=== PATIENT | male | born 1990 | race American Indian/Alaskan Native ===

== ENCOUNTER 2017-06-22 15:12 | Emergency (ER) | payer SELFPAY ==
[2017-06-22 15:18] VITALS: BP 150/88; PULSE 59; RESP 20; TEMP 97.8; O2SAT 100
--- NOTE | 2017-06-22 15:31 | C.PDOC ---
History Of Present Illness 27 yr old male presents to the ER with complaints of right eye itchiness since yesterday. Patient states he woke up today with crusting and redness. Denies fever, vision changes, URI symtpoms, or headache. Time Seen by Provider: 06/22/17 15:21 Chief Complaint (Nursing): Eye Problem History Per: Patient History/Exam Limitations: no limitations Onset/Duration Of Symptoms: Days (1) Current Symptoms Are (Timing): Still Present Past Medical History Reviewed: Historical Data, Nursing Documentation, Vital Signs Vital Signs: Last Vital Signs Temp 97.8 F 06/22/17 15:16 Pulse 59 L 06/22/17 15:16 Resp 20 06/22/17 15:16 BP 150/88 06/22/17 15:16 Pulse Ox 100 06/22/17 16:11 Family History: States: No Known Family Hx - Social History Hx Alcohol Use: No Hx Substance Use: No - Immunization History Hx Tetanus Toxoid Vaccination: No Hx Influenza Vaccination: No Hx Pneumococcal Vaccination: No Review Of Systems Except As Marked, All Systems Reviewed And Found Negative. Constitutional: Negative for: Fever, Chills Eyes: Positive for: Redness, Other (Right eye itchiness ). Negative for: Vision Change Neurological: Negative for: Headache Physical Exam - Physical Exam Appears: Non-toxic, No Acute Distress Skin: Warm, Dry Head: Atraumatic, Normacephalic Eye(s): bilateral: PERRL, EOMI, right: Other (Mild injection. Purlent discharge. ) Nose: Normal Oral Mucosa: Moist Throat: Normal, No Erythema, No Exudate Neck: Normal ROM, Supple Chest: Symmetrical Respiratory: No Accessory Muscle Use Neurological/Psych: Oriented x3, Normal Speech ED Course And Treatment O2 Sat by Pulse Oximetry: 100 (RA) Pulse Ox Interpretation: Normal Progress Note: Patient is advised to follow up with optho in 1-2 days for further evaluation. Disposition - Disposition Referrals: Bobo Coates MD [Staff Provider] - Disposition: HOME/ ROUTINE Disposition Time: 15:27 Condition: STABLE Additional Instructions: Follow up with primary medical doctor in 1-3 days without fail for further evaluation. Take medications as prescribed. Return to the emergency department at any time if symptoms persist or worsen. 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 - Scribe Statement The provider has reviewed the documentation as recorded by the Scribe María White All medical record entries made by the Scribe were at my direction and personally dictated by me. I have reviewed the chart and agree that the record accurately reflects my personal performance of the history, physical exam, medical decision making, and the department course for this patient. I have also personally directed, reviewed, and agree with the discharge instructions and disposition.
== END 2017-06-22 15:47 | disposition home or self-care (01) ==
LOC: C.ER 15:12
DX: H10.9 Unspecified conjunctivitis (principal)

== ENCOUNTER 2018-03-19 12:59 | Emergency (ER) | payer OTHER ==
[2018-03-19 13:04] VITALS: BP 152/79; PULSE 65; RESP 18; TEMP 97.8; O2SAT 100
--- NOTE | 2018-03-19 13:30 | C.PDOC ---
History Of Present Illness 27 year old male presents to the ED for evaluation of left-sided neck pain which gradually developed over the past 3 days. Patient admits he was holding my baby and my head was rotated and that he developed neck pain since then. Pt describes pain as localized over Left lateral neck area, worse with head rotation. Otherwise, Patient denies known direct trauma or injury, fever, chills , headache, dizziness, vertigo, recent illness, chest pain, shortness of breath , dyspnea, abd. pain, N/V, back pain, denies weakness, sensory or vascular deficits to B/L UEs. Ambulate to Ed for evaluation, not in nay apparent distress. Time Seen by Provider: 03/19/18 13:08 Chief Complaint (Nursing): Upper Extremity Problem/Injury History Per: Patient History/Exam Limitations: no limitations Onset/Duration Of Symptoms: Days (3), Gradual Current Symptoms Are (Timing): Still Present Quality: "Pain" Additional History Per: Patient Past Medical History Reviewed: Historical Data, Nursing Documentation, Vital Signs Vital Signs: Last Vital Signs Temp 97.8 F 03/19/18 13:02 Pulse 65 03/19/18 13:02 Resp 18 03/19/18 13:02 BP 152/79 H 03/19/18 13:02 Pulse Ox 100 03/19/18 14:14 - Medical History PMH: No Chronic Diseases Surgical History: No Surg Hx Family History: States: Unknown Family Hx - Social History Hx Alcohol Use: No Hx Substance Use: No - Immunization History Hx Tetanus Toxoid Vaccination: No Hx Influenza Vaccination: No Hx Pneumococcal Vaccination: No Review Of Systems Cardiovascular: Negative for: Chest Pain Respiratory: Negative for: Shortness of Breath Musculoskeletal: Positive for: Neck Pain (left-sided). Negative for: Back Pain Neurological: Negative for: Headache, Dizziness Physical Exam - Physical Exam Appears: Well, Non-toxic, No Acute Distress Skin: Normal Color, Warm, Dry, No Rash Head: Normacephalic Eye(s): bilateral: PERRL Ear(s): Bilateral: Normal Nose: No Flaring, No Discharge Oral Mucosa: Moist, No Drooling Throat: No Drooling Neck: Normal ROM, Trachea Midline, No Midline Cervical Tenderness, No Step Off Deformity, Supple, Other (mild tenderness over left SCM muscle. No deformity, no skin changes.) Chest: Symmetrical, No Deformity, No Tenderness Cardiovascular: Rhythm Regular Respiratory: No Decreased Breath Sounds, No Accessory Muscle Use, No Stridor, No Wheezing Gastrointestinal/Abdominal: Soft, No Tenderness, No Distention, No Guarding Back: No CVA Tenderness, No Vertebral Tenderness Extremity: Normal ROM, No Deformity, No Swelling Neurological/Psych: Oriented x3, Normal Speech, Normal Motor, Normal Sensation, Normal Reflexes ED Course And Treatment O2 Sat by Pulse Oximetry: 100 (on RA) Pulse Ox Interpretation: Normal Progress Note: Toradol IM administered. On re-evaluation, pt is afebrile, hemodynamicaly stable. Non-toxic. Ambulatory in ED with stable gait. head: AT /NC. neck: SUpple, mild tenderness over Left SCM muscle with mild spasm. no midline tenderness, no skin changes. CVS: (+)S1S2, reg. Neurologicaly intact. Pt has clinical finidngs c/w cervical strain, left. Pt advised. ref. to f/u with PMD in 2-3 days for re-eval. return if any new changes. Disposition Counseled Patient/Family Regarding: Diagnosis, Need For Followup, Rx Given - Disposition Referrals: [facility] [Outside] Disposition: HOME/ ROUTINE Disposition Time: 13:27 Condition: STABLE Additional Instructions: Take medication as prescribed Follow up with PMD in 2-3 days for re-evaluation. return to ED if any worsening or new changes. Prescriptions: Ibuprofen [Motrin Tab] 600 mg PO TID #20 tab Methocarbamol [Robaxin] 500 mg PO TID #20 tab traMADol [Ultram] 50 mg PO TID #7 tab Instructions: Cervical Muscle Strain Forms: 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 - Scribe Statement The provider has reviewed the documentation as recorded by the Scribe (Elissa Torres) All medical record entries made by the Scribe were at my direction and personally dictated by me. I have reviewed the chart and agree that the record accurately reflects my personal performance of the history, physical exam, medical decision making, and the department course for this patient. I have also personally directed, reviewed, and agree with the discharge instructions and disposition.
== END 2018-03-19 13:37 | disposition home or self-care (01) ==
LOC: C.ER 12:59
DX: S16.1XXA Strain of muscle, fascia and tendon at neck level, initial encounter (principal); X58.XXXA Exposure to other specified factors, initial encounter
CPT/HCPCS: 96372; 99283; J1885